=== PATIENT | female | born 1960 ===

== ENCOUNTER → 2018-03-20 | Day surgery (SDC) | payer OTHER ==
[~2018-03-20] VITALS: Ht 175.3 cm; Wt 107.5 kg
[~2018-03-20] MED LIST: AMIL5TAB11 PO; AMLO-99 PO; CITA-141 PO; CYCL10TA29 PO; DIAZ-303 PO; LIDOCAINE/SOD BICARB 8.4% SYR ID ONE; LISI-374 PO; NORMOSOL R SOLN(*) 1000 ML BAG 1,000 ML IV PRN; OXYC-865 PO; OXYC20TA99 PO; PROPOFOL EMUL(*) 10MG/ML 20 ML 20 ML ONE; PROPOFOL EMUL(*) 10MG/ML 20 ML 40 ML ONE; SPIR1TAB28 PO; TORS100T22 PO
[2018-03-20 07:38] VITALS: BP 148/88
[2018-03-20 10:00] VITALS: BP 119/82
[2018-03-20 10:15] VITALS: BP 108/87
[2018-03-20 10:46] VITALS: BP 126/88
[2018-03-20 10:47] VITALS: BP 142/92
== END ==
LOC: OR 03:57
PROVIDERS: ATTEND Internal Medicine
DX: Z12.11 Encounter for screening for malignant neoplasm of colon (principal); K62.1 Rectal polyp
CPT/HCPCS: 00811; 45385; 88305; J2704

== ENCOUNTER → 2018-09-18 | Outpatient (CLI) | payer OTHER, MEDICARE ==
[~2018-09-18] MED LIST changes: +AMLO-113 PO; -AMLO-99 PO; -LIDOCAINE/SOD BICARB 8.4% SYR ID ONE; -NORMOSOL R SOLN(*) 1000 ML BAG 1,000 ML IV PRN; -PROPOFOL EMUL(*) 10MG/ML 20 ML 20 ML ONE; -PROPOFOL EMUL(*) 10MG/ML 20 ML 40 ML ONE
[2018-09-18 11:23] LABS: PLATELET COUNT, AUTOMATED 282 K/uL (150-450)
--- NOTE | 2018-09-18 11:58 | EKG ---
FACILITY: [facility] - [place] PATIENT NAME: ELMER BAINS : [id number] MR: [id number] V: [id number] EXAM DATE: ORDERING PHYSICIAN: RAJEEV MAHARAJ TECHNOLOGIST: JUANY Rowley Reason : PRE-OP Blood Pressure : / mmHG Vent. Rate : 073 BPM Atrial Rate : 073 BPM P-R Int : 152 ms QRS Dur : 076 ms QT Int : 396 ms P-R-T Axes : 080 054 067 degrees QTc Int : 436 ms Normal sinus rhythm Nonspecific T wave abnormality Abnormal ECG No previous ECGs available Confirmed by NAZARIO ROGERS ([id number]) on 09/18/2018 7:39:47 PM Referred By: CAROL ANN Confirmed By:NAZARIO ROGERS
--- NOTE | 2018-09-18 13:24 | RADIOLOGY IMAGING REPORT ---
FACILITY: [facility] - [place] PATIENT NAME: Amberly Tucker : 1960 MR: [id number] V: [id number] EXAM DATE: ORDERING PHYSICIAN: RAJEEV MAHARAJ TECHNOLOGIST: [place] [facility] [place]ly [place] : 1960 Visit/Account:[id number] Date of Sevice: 09/18/2018 Exam type: CHEST PA AND LAT History: Preop, previous smoker Comparison: None. Findings: The lungs are free of acute effusions, infiltrates or edema. BX silhouette is normal in size. The t rachea is in midline. There are mild spondylotic changes of the thoracic spine. IMPRESSION: 1. No acute cardiopulmonary process is seen Report Dictated By: Jayna Delacruz MD at 09/18/2018 1:19 PM Report E-Signed By: Jayna Delacruz MD at 09/18/2018 1:20 PM WSN:[email or web address]
== END ==
LOC: RAD 10:47
PROVIDERS: ATTEND Orthopaedic Surgery
DX: Z01.812 Encounter for preprocedural laboratory examination (principal); Z01.818 Encounter for other preprocedural examination; Z01.810 Encounter for preprocedural cardiovascular examination; M17.12 Unilateral primary osteoarthritis, left knee
CPT/HCPCS: 36415; 71046; 81001; 82040; 82247; 82310; 82374; 82435; 82565; 82947; 84075; 84132; 84155; 84295; 84450; 84460; 84520; 85025; 86850; 86900; 86901; 93005

== ENCOUNTER 2018-10-27 01:51 | Inpatient (IN) | payer OTHER, MEDICARE ==
[2018-10-26 14:57] LABS: INR 0.98
[~2018-10-27] VITALS: Ht 175.3 cm; Wt 104.8 kg
[2018-10-27] VITALS (14 sets, daily range): BP systolic 105–143; BP diastolic 71–98
[~2018-10-27 01:51] MED LIST changes: +DULO60CA56 PO; +PRED20TA6 PO
[2018-10-27] MEDS ORDERED: HYDROCORTISONE 100 MG/2 ML IVP ONE (06:15)
[2018-10-27] MEDS ORDERED: fentaNYL CITR 250 MCG/5 ML AMP ONE (07:16)
[2018-10-27] MEDS ORDERED: DEXAMETHASONE SOD 4 MG/ML VIAL ONE (07:18)
[2018-10-27] MEDS ORDERED: PROPOFOL EMUL(*) 10MG/ML 20 ML 40 ML ONE (07:18)
[2018-10-27] MEDS ORDERED: ONDANSETRON 4 MG/2 ML VIAL ONE (07:18)
[2018-10-27] MEDS ORDERED: LIDOCAINE MPF 1% 5 ML VIAL ONE (07:18)
[2018-10-27] MEDS ORDERED: KETAMINE HCL 200 MG/20 ML MDV ONE (07:22)
[2018-10-27] MEDS ORDERED: HALOPERIDOL LACT 5 MG/ML VIAL IM ONE (07:25)
[2018-10-27] MEDS ORDERED: PREGABALIN 150 MG CAPSULE PO ONE (09:10)
[2018-10-27] MEDS ORDERED: LIDOCAINE 2% JELLY 5 ML TUBE ONE (10:14)
[2018-10-27] MEDS ORDERED: ceFAZolin(*) 2GM/D5W 50ML 50 ML IVPB ONE (10:45)
[2018-10-27] MEDS ORDERED: LIDOCAINE/SOD BICARB 8.4% SYR ID ONE (10:45)
[2018-10-27] MEDS ORDERED: NORMOSOL R SOLN(*) 1000 ML BAG 1,000 ML IV PRN (10:45)
[2018-10-27] MEDS ORDERED: TRANEXAMIC AC 1000 MG/10ML SDV 1,000 MG in DEXTROSE 5% 50 ML BAG 50 ML IV ONE (10:45)
[2018-10-27] MEDS ORDERED: BACITRACIN 50000 UNIT/VIAL 100,000 UNIT in NS 0.9% 3000 ML IRRIGATION BAG 3,000 ML IR ONE (10:45)
[2018-10-27] MEDS ORDERED: ACETAMINOPHEN 500 MG TAB PO ONE (10:45)
[2018-10-27] MEDS ORDERED: CELECOXIB 200 MG CAP PO ONE (10:45)
[2018-10-27] MEDS ORDERED: ROPIVACAINE/EPI/CLONIDINE/KET 50 ML SYRINGE INJ ONE (10:45)
[2018-10-27] MEDS ORDERED: cloNIDine EPIDUR INJ 100MCG/ML 40 MCG, ROPIVACAINE 0.5% 20 ML VIAL 25 ML, EPINEPHrine H... EPI ONE (10:45)
[2018-10-27] MEDS ORDERED: FAMOTIDINE 20 MG TAB PO ONE (10:45)
[2018-10-27] MEDS ORDERED: MIDAZOLAM 2 MG/2 ML VIAL IVP PRN (10:45)
[2018-10-27] MEDS ORDERED: diphenhydrAMINE 25 MG CAP PO PRN (13:35)
[2018-10-27] MEDS ORDERED: BISACODYL 10 MG SUPP PR PRN (13:35)
[2018-10-27] MEDS ORDERED: PROMETHAZINE 25 MG/ML 1 ML AMP IVP PRN (13:35)
[2018-10-27] MEDS ORDERED: LR 1000 ML BAG 1000 ML IV PRN (13:35)
[2018-10-27] MEDS ORDERED: ZOLPIDEM TARTRATE 5 MG TAB PO PRN (13:35)
[2018-10-27] MEDS ORDERED: MAGNESIUM HYDROXIDE* 30ML UDCP PO PRN (13:35)
[2018-10-27] MEDS ORDERED: ONDANSETRON 4 MG/2 ML VIAL IVP PRN (13:35)
[2018-10-27] MEDS ORDERED: FLUSH 10 ML SYR IVP PRN (13:35)
[2018-10-27] MEDS ORDERED: MAGNESIUM CITRATE 300 ML BTL PO PRN (13:35)
[2018-10-27] MEDS ORDERED: diphenhydrAMINE 50 MG/ML VIAL IVP PRN (13:35)
--- NOTE | 2018-10-27 13:53 | RADIOLOGY IMAGING REPORT ---
FACILITY: [facility] - [place] PATIENT NAME: Amberly Tucker : 1960 MR: [id number] V: [id number] EXAM DATE: ORDERING PHYSICIAN: RAJEEV MAHARAJ TECHNOLOGIST: Location: [facility] [place] Patient: Amberly Tucker : 1960 Visit/Account:[id number] Date of Sevice: 10/27/2018 Exam type: KNEE LIMITED LEFT History: POST OP LEFT TKA Findings:: Two views the left knee demonstrate a left knee arthroplasty in good anatomic alignment. Soft tissue gas projects over the anterior aspect of this postoperative knee. IMPRESSION: 1. Left knee arthroplasty appears in good anatomic alignment Report Dictated By: Jayna eDlacruz MD at 10/27/2018 1:47 PM Report E-Signed By: Jayna Delacruz MD at 10/27/2018 1:48 PM WSN:[email or web address]
--- NOTE | 2018-10-27 14:28 | OPERATIVE REPORT 1 ---
EVENT DATE: October 27, 2018 SURGEON: Rosalino Loyd MD ANESTHESIOLOGIST: Gary Hussein MD ANESTHESIA: General plus block. AUTOMOTIVE SALES ASSOCIATE: RICHELLE Dubois PREOPERATIVE DIAGNOSIS Left knee osteoarthritis. POSTOPERATIVE DIAGNOSIS Left knee osteoarthritis. PROCEDURE PERFORMED Left total knee arthroplasty. FINDINGS Patient had a significant amount of arthritic changes throughout the knee but was amenable for a total knee replacement. ESTIMATED BLOOD LOSS About 200 mL. DRAINS None. COMPLICATIONS None. TOURNIQUET TIME About 17 minutes, which was only up during instrumentation. IMPLANTS USED [employer] Total Knee System with a size 8 posterior stabilized femur, a 7 rotating platform tibia, a size 8 x 5 rotating platform posterior stabilized poly and a 35 anatomic patella. SPECIMENS None. INDICATIONS AND HISTORY This patient is a 58-year-old female that presented to my clinic for evaluation of left knee pain and irritation going on for some time. She had the left nee replaced at an outside institution and continued to have some trouble and issues associated with the left nee. We tried injections and conservative management. Unfortunately, this failed to relieve a lot of her pain and problems so she wanted to go ahead with a total knee arthroplasty today, October 27, 2018. We went over the risks and benefits associated with this and informed consent was obtained at the last clinic visit. DESCRIPTION OF PROCEDURE The patient was brought into the operating room. She and the procedure were both verified. She was placed supine on the operating table and induced intubated by anesthesia. The left lower extremity was prepped and draped in the usual fashion and a time-out was observed, verifying the correct patient and procedure. The standard incision was made over the anterior aspect of the knee. I was able to carefully cauterize all bleeders to the skin through this area and then I was able to get down to the medial parapatellar approach. Once I was able to get down to this area, I then performed the medial parapatellar approach without any major difficulty and got into the knee itself. There was noted to be some loose fragments and osteophytes in this area and a significant amount of scarring and joint fluid and contracture associated with extension of the knee. I then was able to high flex the knee and cut out the ACL and a little bit of the anterior meniscus of the medial and lateral sides. I was then able to drill down the center portion using the [employer] intramedullary guide in order to then cut 9 mm off the distal femur when it was set on 5 degrees in the standard setting. I then put in the sizing block and then was able to pin this in place. This sized to an 8 and so, therefore, we utilized an 8 even though it was a little bit wider but that was the best thing for her from an anterior posterior direction. I then made the anterior and posterior cuts with the four-in-one cutting block and then the standard chamfer cut. This was then followed by the notch cutting block and cutting the notch out without any major difficulty. Once I was able to do this, I was then able to turn attention back to the tibial side, where I was able to sublux the tibia forward and then cut the rest of the posterior menisci out of the medial and lateral sides and the rest of the PCL that was left in this area. I then drilled centrally down the intramedullary canal on the tibia and then used the intramedullary guide from the [employer] System, cutting 2 mm off the medial side in order to then cut the proximal tibia. Once the proximal tibia was cut, I then removed some osteophytes off the posterior aspect of both the femur and the tibia and then we did a posterior release of the capsule with a Jameson in this area. I was then able to get the knee to full extension and the gaps looked pretty symmetrical associated with it. I then sized the tibia to a 7 and prepped the tibia in a standard fashion with the standard block. This was then followed by trial of the size 8 femur with 7 tibia and 8 x 5 mm poly trial. This had good flexion and no signs of instability. It did get to full extension but there was a little bit of tightness associated with this but I did not want to cut anymore distal femur secondarily due to the fact of the wide contour and I wanted to leave as much of the femoral condyle in place. I then was able to cut the patella without any major difficulty by sizing it and cutting 7.5 mm out and then putting on a size 35 anatomic patella. I then put the tourniquet up and cleaned off all the bony surfaces, cemented the components in place after injecting the pain cocktail in this area and putting a bony block within the femoral canal. Once the cement was hardened, I then took down the tourniquet and closed the medial parapatellar approach with a #1 Stratafix. This was then followed by 2-0 Vicryl in the deep fat and then 2-0 subcutaneous Stratafix then followed by 4-0 subcuticular running Monocryl and then a Bioclusive dressing. The patient was then awakened, extubated and transferred to PACU in stable condition after full dressing was applied. CHAI
--- NOTE | 2018-10-27 15:28 | Hospitalist Consultation ---
History of Present Illness Requesting Physician Dr. Loyd Reason for Consult Medical Management Chief Complaint s/p left knee replacement History of Present Illness She was admitted s/p left knee replacement. It is reported the surgery went well and without complication. History Problems: (1) Hypertension Status: Chronic (2) COPD (chronic obstructive pulmonary disease) Status: Chronic (3) Anxiety Status: Chronic (4) Fibromyalgia Status: Chronic (5) Idiopathic edema Status: Chronic Home Meds Reported Medications Duloxetine Hcl (CYMBALTA) 60 Mg Capsule.dr, 60 MG PO QDAY, #5 CAP 10/20/18 Prednisone (PREDNISONE) 20 Mg Tablet, 20 MG PO PRN, TAB 10/20/18 Oxycodone Hcl/Acetaminophen (PERCOCET 5-325 MG TABLET) 1 Each Tablet, 10-325 EACH PO PRN, TAB 03/13/18 Torsemide (TORSEMIDE) 100 Mg Tablet, 100 MG PO PRN 03/13/18 Amiloride Hcl (AMILORIDE HCL) 5 Mg Tablet, 5 MG PO PRN 03/13/18 Spironolact/Hydrochlorothiazid (SPIRONOLACTONE-HCTZ 25-25 TAB) 1 Each Tablet, 1 EACH PO PRN, TAB 03/13/18 Oxycodone Hcl (OXYCONTIN) 20 Mg Tab.er.12h, 20 MG PO PRN, TAB 03/13/18 Cyclobenzaprine Hcl (CYCLOBENZAPRINE HCL) 10 Mg Tablet, 10 MG PO PRN, #9 TAB 03/13/18 Citalopram Hydrobromide (CITALOPRAM HBR) 40 Mg Tablet, 40 MG PO QDAY, #5 TAB 03/13/18 Amlodipine Besylate (AMLODIPINE BESYLATE) 10 Mg Tablet, 1 TAB PO QDAY, TAB 03/13/18 Lisinopril (LISINOPRIL) 40 Mg Tablet, 40 MG PO QDAY, TAB 03/13/18 Discontinued Reported Medications Diazepam (Valium) 5 Mg Tablet, 2 MG PO PRN 03/13/18 Allergies: Coded Allergies: gabapentin (Verified Allergy, Unknown, VISION LOSS, 10/20/18) Patient History: FH: atrial fibrillation MOTHER FH: breast cancer MOTHER FH: colon cancer MOTHER BROTHER OR SISTER FH: diabetes mellitus BROTHER OR SISTER FH: diabetic complications BROTHER OR SISTER FH: hypertension FATHER MOTHER FH: hypothyroidism BROTHER OR SISTER FH: testicular cancer BROTHER OR SISTER Hx Smoking: Yes (QUIT 2012/ LESS THEN 1 PPD X 35 YEARS) Smoking Status: Former Smoker Exposure to Second Hand Smoke?: Yes (CHILDHOOD) When Quit Tobacco?: 2012 Caffeine Intake: Coffee Caffeine/Cups Per Day: 2 CPD Hx Alcohol Use: Yes Alcohol Used: Beer Hx Substance Use Disorder: No Review of Systems All Systems Reviewed/Normal: Yes, Except as Noted Exam Vital Signs Vital Signs Date Time Temp Pulse Resp B/P (MAP) Pulse Ox O2 Delivery O2 Flow Rate FiO2 10/27/18 14:28 98.6 95 20 116/80 (92) 96 Nasal Cannula 3.0 General Appearance: Alert, Awake, No Acute Distress, Afebrile Neuro: No Gross deficits Cardiovascular: Regular Rate and Rhythm Respiratory: No Respiratory Distress, Clear to Auscultation GI: Abd Soft and Non-Tender Extremities: Warm, Perfused; No Edema Psych: Alert & Oriented X3, Appropriate Mood & Affect Assessment and Plan Problems: (1) Status post left knee replacement Status: Acute Assessment & Plan: Followed by Dr. Loyd. She will be placed on Aspirin for DVT prophylaxis. She has no history of DVT or PE. (2) Hypertension Status: Chronic Assessment & Plan: She is on chronic treatment with Lisinopril and Amlodipine. The Lisinopril has been restarted with hold parameters. (3) Idiopathic edema Status: Chronic Assessment & Plan: She is on chronic treatment with as needed Torsemide, Spironolactone/ Hydrochlorothiazide, and Amiloride. These are being held at this time, secondary to lower blood pressures and reduced swelling. (4) Fibromyalgia Status: Chronic Assessment & Plan: She is on chronic treatment with Cymbalta. (5) Anxiety Status: Chronic Assessment & Plan: She is on chronic treatment with Citalopram. (6) COPD (chronic obstructive pulmonary disease) Status: Chronic Assessment & Plan: She does not use any treatment at this time. Venous Thromboembolism Antithrombotics Is Pt On Any Antithrombotics?: No CATHY BAUMAN Oct 27, 2018 15:28
[2018-10-27] MEDS: ceFAZolin(*) 2GM/D5W 50ML 50 ML IVPB SCH (17:32)
[2018-10-27] MEDS: HYDROCORTISONE 100 MG/2 ML IVP SCH (17:33)
[2018-10-27] MEDS: ASPIRIN 325 MG TAB PO SCH (20:48)
[2018-10-27] MEDS: HYDROmorphone HCL 2 MG/ML SDV IVP PRN (22:23)
[2018-10-28 00:30] VITALS: BP 141/75
[2018-10-28] MEDS: ceFAZolin(*) 2GM/D5W 50ML 50 ML IVPB SCH ×2 (00:34→09:02)
[2018-10-28] MEDS: HYDROCORTISONE 100 MG/2 ML IVP SCH ×2 (00:35→09:05)
[2018-10-28 03:01] VITALS: BP 134/86
[2018-10-28] MEDS: HYDROmorphone HCL 2 MG/ML SDV IVP PRN ×4 (05:52→21:10)
[2018-10-28 07:30] VITALS: BP 150/93
[2018-10-28] MEDS: LISINOPRIL 20 MG TAB PO SCH (09:03)
[2018-10-28] MEDS ORDERED: PREGABALIN 25 MG CAP PO SCH (09:10)
[2018-10-28] MEDS ORDERED: PREGABALIN 50 MG CAPSULE PO SCH (09:10)
--- NOTE | 2018-10-28 09:39 | Hospitalist Progress Note ---
Subjective Progress Notes Subjective She has c/o pain to the left hand. She relates this pain to be related to her Fibromyalgia. She states that she had Lyrica yesterday prior to surgery, which helped her pain. She requests she be put on this medication today. Patient Complains of: Cardiovascular: No: Chest Pain Respiratory: No: Shortness of Breath Physical Exam Vital Signs Date Time Temp Pulse Resp B/P (MAP) Pulse Ox O2 Delivery O2 Flow Rate FiO2 10/28/18 07:30 98.0 16 150/93 (112) 96 Nasal Cannula 10/28/18 03:01 93 2.0 Intake and Output 10/28/18 06:58 Intake Total 5520 ml Output Total 100 ml Balance 5420 ml Intake Oral 3020 ml IV Total 2500 ml Output Estimated Blood Loss 100 ml # Voids 6 # Bowel Movements 2 General Appearance: Alert, Awake, No Acute Distress, Afebrile Neuro: No Gross deficits Cardiovascular: Regular Rate and Rhythm Respiratory: No Respiratory Distress, Clear to Auscultation Musculoskeletal: Other (left hand normal in appearance) Psych: Alert & Oriented X3, Appropriate Mood & Affect Result Diagram: 10/28/18 0543 Assessment and Plan Problems: (1) Status post left knee replacement Status: Acute Assessment & Plan: Followed by Dr. Loyd. She will be placed on Aspirin for DVT prophylaxis. She has no history of DVT or PE. (2) Hypertension Status: Chronic Assessment & Plan: She is on chronic treatment with Lisinopril and Amlodipine. The Lisinopril has been restarted with hold parameters. (3) Idiopathic edema Status: Chronic Assessment & Plan: She is on chronic treatment with as needed Torsemide, Spironolactone/ Hydrochlorothiazide, and Amiloride. These are being held at this time, secondary to lower blood pressures and reduced swelling. (4) Fibromyalgia Status: Chronic Assessment & Plan: She is on chronic treatment with Cymbalta. She requests to be placed on Lyrica. She will be started at 75mg BID. She will follow up with PCP regarding pain upon discharge. (5) Anxiety Status: Chronic Assessment & Plan: She is on chronic treatment with Citalopram. (6) COPD (chronic obstructive pulmonary disease) Status: Chronic Assessment & Plan: She does not use any treatment at this time. Exam Sepsis Risk: No Definite Risk CATHY BAUMAN WATCHMAKER APPRENTICE Oct 28, 2018 09:39
[2018-10-28] MEDS: DULoxetine HCL 30 MG CAPCR PO SCH (09:41)
[2018-10-28] MEDS: CITALOPRAM HYDROBROM 20 MG TAB PO SCH (09:41)
[2018-10-28] MEDS: PREGABALIN 75 MG CAPSULE PO SCH ×2 (09:41→21:09)
[2018-10-28 11:10] VITALS: BP 143/100
[2018-10-28 12:45] VITALS: Ht 175.3 cm; Wt 104.8 kg
[2018-10-28 15:22] VITALS: BP 147/86
[2018-10-28 19:44] VITALS: BP 159/86
[2018-10-28] MEDS: ASPIRIN 325 MG TAB PO SCH (21:09)
[2018-10-29 00:15] VITALS: BP 138/92
[2018-10-29] MEDS: HYDROmorphone HCL 2 MG/ML SDV IVP PRN ×6 (01:16→19:07)
[2018-10-29 03:27] VITALS: BP 145/98
[2018-10-29] MEDS: DULoxetine HCL 30 MG CAPCR PO SCH (08:18)
[2018-10-29] MEDS: LISINOPRIL 20 MG TAB PO SCH (08:18)
[2018-10-29] MEDS: PREGABALIN 75 MG CAPSULE PO SCH ×2 (08:18→20:27)
[2018-10-29] MEDS: CITALOPRAM HYDROBROM 20 MG TAB PO SCH (08:18)
[2018-10-29 11:46] VITALS: BP 145/96
--- NOTE | 2018-10-29 14:42 | Hospitalist Progress Note ---
Subjective Progress Notes Subjective She has no complaints this morning. She had no acute events overnight. Patient Complains of: Cardiovascular: No: Chest Pain Respiratory: No: Shortness of Breath Physical Exam Vital Signs Date Time Temp Pulse Resp B/P (MAP) Pulse Ox O2 Delivery O2 Flow Rate FiO2 10/29/18 11:46 97.8 93 16 145/96 (112) 91 Nasal Cannula 0.5 Intake and Output 10/28/18 23:58 Intake Total 1560 ml Balance 1560 ml Intake Oral 1560 ml # Voids 3 General Appearance: Alert, Awake, No Acute Distress, Afebrile Neuro: No Gross deficits Cardiovascular: Regular Rate and Rhythm Respiratory: No Respiratory Distress, Clear to Auscultation Psych: Alert & Oriented X3, Appropriate Mood & Affect Result Diagram: 10/29/18 0525 Assessment and Plan Problems: (1) Status post left knee replacement Status: Acute Assessment & Plan: Followed by Dr. Loyd. She will be placed on Aspirin for DVT prophylaxis. She has no history of DVT or PE. (2) Hypertension Status: Chronic Assessment & Plan: She is on chronic treatment with Lisinopril and Amlodipine. The Lisinopril has been restarted with hold parameters. (3) Idiopathic edema Status: Chronic Assessment & Plan: She is on chronic treatment with as needed Torsemide, Spironolactone/ Hydrochlorothiazide, and Amiloride. These are being held at this time, secondary to lower blood pressures and reduced swelling. (4) Fibromyalgia Status: Chronic Assessment & Plan: She is on chronic treatment with Cymbalta. She requests to be placed on Lyrica. She will be started at 75mg BID. She will follow up with PCP regarding pain upon discharge. (5) Anxiety Status: Chronic Assessment & Plan: She is on chronic treatment with Citalopram. (6) COPD (chronic obstructive pulmonary disease) Status: Chronic Assessment & Plan: She does not use any treatment at this time. Exam Sepsis Risk: No Definite Risk CATHY BAUMAN SHRIMPING BOAT CAPTAIN Oct 29, 2018 14:42
[2018-10-29 15:24] VITALS: BP 139/91
[2018-10-29 19:09] VITALS: BP 126/77
[2018-10-29] MEDS: ASPIRIN 325 MG TAB PO SCH (20:27)
[2018-10-29 23:14] VITALS: BP 129/84
[2018-10-30 02:55] VITALS: BP 142/81
[2018-10-30] MEDS: HYDROmorphone HCL 2 MG/ML SDV IVP PRN (03:31)
[2018-10-30 08:13] VITALS: BP 132/78
[2018-10-30] MEDS ORDERED: ASPI-757 PO (08:27)
[2018-10-30] MEDS ORDERED: PREG75CA60 PO (08:27)
[2018-10-30] MEDS: PREGABALIN 75 MG CAPSULE PO SCH (08:30)
[2018-10-30] MEDS: LISINOPRIL 20 MG TAB PO SCH (08:30)
[2018-10-30] MEDS: CITALOPRAM HYDROBROM 20 MG TAB PO SCH (08:31)
[2018-10-30] MEDS: DULoxetine HCL 30 MG CAPCR PO SCH (08:31)
--- NOTE | 2018-10-30 10:58 | Hospitalist Progress Note ---
Subjective Progress Notes Subjective She has no complaints this morning. She wants to go home. Patient Complains of: Cardiovascular: No: Chest Pain Respiratory: No: Shortness of Breath Physical Exam Vital Signs Date Time Temp Pulse Resp B/P (MAP) Pulse Ox O2 Delivery O2 Flow Rate FiO2 10/30/18 08:13 98.3 87 16 132/78 (96) 91 Nasal Cannula 1.0 Intake and Output 10/30/18 06:58 Intake Total 10 ml Balance 10 ml Intake Oral 10 ml # Voids 2 General Appearance: Alert, Awake, No Acute Distress, Afebrile Neuro: No Gross deficits Cardiovascular: Regular Rate and Rhythm Respiratory: No Respiratory Distress, Clear to Auscultation Psych: Alert & Oriented X3, Appropriate Mood & Affect Result Diagram: 10/30/18 0525 Assessment and Plan Problems: (1) Status post left knee replacement Status: Acute Assessment & Plan: Followed by Dr. Loyd. She will be placed on Aspirin for DVT prophylaxis. She has no history of DVT or PE. (2) Hypertension Status: Chronic Assessment & Plan: She is on chronic treatment with Lisinopril and Amlodipine. The Lisinopril has been restarted with hold parameters. (3) Idiopathic edema Status: Chronic Assessment & Plan: She is on chronic treatment with as needed Torsemide, Spironolactone/ Hydrochlorothiazide, and Amiloride. These were held during admission, secondary to lower blood pressures and reduced swelling. (4) Fibromyalgia Status: Chronic Assessment & Plan: She is on chronic treatment with Cymbalta. She requests to be placed on Lyrica. She will be started at 75mg BID. She will follow up with PCP regarding pain upon discharge. (5) Anxiety Status: Chronic Assessment & Plan: She is on chronic treatment with Citalopram. (6) COPD (chronic obstructive pulmonary disease) Status: Chronic Assessment & Plan: She does not use any treatment at this time. Exam Sepsis Risk: No Definite Risk CATHY BAUMAN FERN GATHERER Oct 30, 2018 10:58
== END 2018-10-30 10:00 | disposition home or self-care (01) | DRG 470 ==
LOC: OR 01:51 → MED 14:25 → INTOOBSV 14:25 → OBSVTOIN 14:25
PROVIDERS: ADMIT Orthopaedic Surgery; ATTEND Orthopaedic Surgery
PROC: 0SRD0J9 Replacement of Left Knee Joint with Synthetic Substitute, Cemented, Open Approach (ICD-10-PCS; principal; 2018-10-27 10:50)
DX: M17.12 Unilateral primary osteoarthritis, left knee (principal); I10 Essential (primary) hypertension; M79.7 Fibromyalgia; G62.9 Polyneuropathy, unspecified; J44.9 Chronic obstructive pulmonary disease, unspecified; F41.9 Anxiety disorder, unspecified; R60.9 Edema, unspecified; Z96.651 Presence of right artificial knee joint; Z90.710 Acquired absence of both cervix and uterus; Z87.891 Personal history of nicotine dependence; Z98.1 Arthrodesis status
CPT/HCPCS: 36415; 85014; 85018; 85610; 86850; 86900; 86901; 97161; C1713; C1776; J0690; J1100; J1170; J1630; J1720; J2001; J2250; J2405; J2704; J3010; J3490; J7060

== ENCOUNTER → 2018-12-21 | Outpatient (CLI) | payer OTHER, MEDICARE ==
[2018-10-28 12:45] VITALS: BMI 34.1
[~2018-12-21] MED LIST changes: -AMLO-113 PO; +AMLO-127 PO; +ASPI-757 PO; +PREG75CA60 PO
--- NOTE | 2018-12-21 11:51 | RADIOLOGY IMAGING REPORT ---
FACILITY: [facility] [place] PATIENT NAME: Amberly Tucker : 1960 MR: [id number] V: [id number] EXAM DATE: ORDERING PHYSICIAN: RAJEEV MAHARAJ TECHNOLOGIST: Location: [facility] - [place] Patient: Amberly uTcker : 1960 Visit/Account:[id number] Date of Sevice: 12/21/2018 Exam type: US VENOUS LOWER EXT LT History: Total knee replacement October 27, 2018, left calf tightness and surgery Comparison: None. Findings: The left lower extremity veins were imaged including the left common femoral vein, greater saphenous vein, superficial femoral vein, popliteal vein, posterior tibial vein, peroneal vein and anterior tib ial veins revealing no evidence of intraluminal thrombi. The veins were compressible and demonstrate d augmentation IMPRESSION: 1. No sonographic evidence DVT involving left lower extremity veins Report Dictated By: Jayna Delacruz MD at 12/21/2018 11:42 AM Report E-Signed By: Jayna Delacruz MD at 12/21/2018 11:43 AM WSN:[email or web address]
== END ==
LOC: US 10:24
PROVIDERS: ATTEND Orthopaedic Surgery
DX: M79.662 Pain in left lower leg (principal); R22.42 Localized swelling, mass and lump, left lower limb; Z98.890 Other specified postprocedural states